=== PATIENT | female | born 1955 | race Caucasian/White ===

== ENCOUNTER 2023-12-06 16:37 | Emergency (ER) | payer OTHER ==
[~2023-12-06] VITALS: Ht 152.4 cm; Wt 49.9 kg
[2023-12-06 16:42] VITALS: BP 105/50; PULSE 65; RESP 18; TEMP 99.1; O2SAT 95
[2023-12-06 21:53] VITALS: BP 98/76; PULSE 64; RESP 14; TEMP 98.4; O2SAT 95
== END 2023-12-06 21:55 | disposition home or self-care (01) ==
LOC: MED 16:37
DX: T20.35XA Burn of third degree of scalp [any part], initial encounter (principal); T20.37XA Burn of third degree of neck, initial encounter; T20.31 Burn of third degree of ear [any part, except ear drum]; T22.35 Burn of third degree of shoulder; T21.34XA Burn of third degree of lower back, initial encounter; G89.29 Other chronic pain; I11.0 Hypertensive heart disease with heart failure; I50.9 Heart failure, unspecified; Z98.890 Other specified postprocedural states; X08.8XXA Exposure to other specified smoke, fire and flames, initial encounter; Y93.89 Activity, other specified; Y92.89 Other specified places as the place of occurrence of the external cause; Y99.8 Other external cause status
CPT/HCPCS: 99283

== ENCOUNTER 2024-04-08 13:11 | Emergency (ER) | payer OTHER ==
[~2024-04-08] VITALS: Ht 152.4 cm; Wt 56.7 kg
[2024-04-08 13:13] VITALS: BP 131/65; PULSE 77; TEMP 97.8; O2SAT 97
[2024-04-08 13:20] VITALS: PULSE 88; O2SAT 94
[2024-04-08] MEDS: MORPHINE SULFATE 4 MG/ML SYR IVP ONE (13:50)
[2024-04-08 13:55] LABS: BASOPHILS # (AUTO) 0.1 K/uL (0.00-0.22); BASOPHILS % (AUTO) 0.5 % (0.0-2.0); EOSINOPHILS % (AUTO) 0.1 % (0.0-4.0); HEMATOCRIT 35.4 % (36-48); HEMOGLOBIN 11.3 g/dL (12.0-16.0); LYMPHOCYTES # (AUTO) 2.5 K/uL (2.5-16.5); LYMPHOCYTES % (AUTO) 12.5 % (20.5-51.1); MEAN CORPUSCULAR HEMOGLOBIN 27 pg (27-31); MEAN CORPUSCULAR HGB CONC 32 g/dL (33-37); MEAN CORPUSCULAR VOLUME 83.2 fL (80-94); MONOCYTES # (AUTO) 1.1 K/uL (0.8-1.0); MONOCYTES % (AUTO) 5.7 % (1.7-9.3); NEUTROPHILS # (AUTO) 16.1 K/uL (1.8-7.7); NEUTROPHILS % (AUTO) 81.2 % (42.2-75.2); PLATELET COUNT (AUTO) 348 K/uL (140-450); RED BLOOD CELL COUNT(AUTO) 4.25 MIL/uL (4.20-5.40); RED CELL DISTRIBUTION WIDTH 17.2 % (11.6-13.7)
[2024-04-08 14:25] LABS: WHITE BLOOD COUNT (AUTO) 19.9 K/uL (4.8-10.8)
[2024-04-08 14:26] LABS: ANION GAP 16.3 (8-16); CALCIUM 9.6 mg/dL (8.5-10.1); CARBON DIOXIDE 26.5 mmol/L (21-32); POTASSIUM 3.8 mmol/L (3.5-5.1)
== END 2024-04-08 14:00 | disposition left against medical advice (07) ==
LOC: MED 13:11
DX: M79.18 Myalgia, other site (principal); I11.0 Hypertensive heart disease with heart failure; I50.9 Heart failure, unspecified
CPT/HCPCS: 36415; 71045; 80048; 83880; 84484; 85025; 93005; 99284; 99285; J2270